=== PATIENT | female | born 1990 | race Caucasian/White ===

== ENCOUNTER 2019-08-06 13:17 | Outpatient (RCR) | payer OTHER, SELFPAY | END 2019-11-04 23:59 | disposition home or self-care (01) | LOC: ANHLAB 13:17 | PROVIDERS: Visit Provider Advanced Practice Midwife | DX: Z29.13 Encounter for prophylactic Rho(D) immune globulin (principal); O36.0990 Maternal care for other rhesus isoimmunization, unspecified trimester, not applicable or unspecified; Z3A.00 Weeks of gestation of pregnancy not specified | CPT/HCPCS: 36415 ==

== ENCOUNTER 2019-12-30 09:53 | Emergency (ER) | payer OTHER, SELFPAY ==
[2019-12-30] VITALS (28 sets, daily range): BP systolic 99–116; BP diastolic 60–72; PULSE 61–86; RESP 15–29; TEMP 36.3; O2SAT 98–100
--- NOTE | ~2019-12-30 | XR_ITS ---
XR chest 1V portable DATE: 12/30/2019 11:08 INDICATION: Shortness of breath. 29 week gravid patient TECHNIQUE: Portable upright AP chest on 12/30/2019 at 1109 hours COMPARISON: None FINDINGS: Normal heart size. No hilar or mediastinal enlargement. No pulmonary infiltrate or consolid ation, pleural effusion or pulmonary vascular congestion or pneumothorax. Included skeletal structure s are unremarkable. IMPRESSION: No active cardiopulmonary disease Reviewed, dictated and finalized at location A.
--- NOTE | ~2019-12-30 | US_ITS ---
US venous doppler [facility] DATE: 12/30/2019 11:25 INDICATION: Calf pain. Shortness of breath. 29 week gravid patient. TECHNIQUE: Real-time and color flow imaging and Doppler analysis of the veins of the lower extremitie s COMPARISON: None FINDINGS: The greater saphenous veins are patent. There is spontaneous and phasic flow and normal aug mentation and color flow signal and normal compression of the deep veins of both lower extremities. IMPRESSION: No evidence of deep venous thrombosis of the lower extremities Reviewed, dictated and finalized at Location A. Reviewed, dictated and finalized at location A.
--- NOTE | ~2019-12-30 | NM_ITS ---
EXAMINATION: NM pulmonary perfusion DATE: 12/30/2019 13:38 INDICATION: Shortness of breath. TECHNIQUE: 4.2 mCi Tc-99m MAA was administered intravenously for perfusion images. Scintigraphic eber ges of the chest were obtained. COMPARISON: Chest single view 12/30/2019 FINDINGS: Perfusion images show no defects. ] IMPRESSION: 1. Normal perfusion of the lungs. Reviewed, dictated and finalized at location E.
--- NOTE | 2019-12-30 10:47 | ECG_ITS ---
Measurements Intervals [place] Rate: 74 P: 27 [place]: 166 QRS: 0 QRSD: 88 T: 14 QT: 393 QTc: 437 Interpretive Statements SINUS RHYTHM NORMAL ECG Electronically Signed On 12-30-2019 13:07:55 CDT by Rock Yee D.O.
--- NOTE | 2019-12-30 10:51 | ED.SOB ---
HPI - SOB/Dyspnea General Chief Complaint: Shortness of Breath/Dyspnea Stated Complaint: SOB/ 29 weeks Time Seen by Provider: 12/30/19 10:40 Source: patient Mode of arrival: ambulatory Limitations: no limitations History of Present Illness HPI Narrative: This patient is a 29 year old female who is 30 weeks GA who presents for evaluation shortness of breath since last night. She noticed initially when she was reaching into the dryer she was winded. She noticed that this feeling continued, and She feels short of breath when she talks and when she moves around. Otherwise she states she feels fine . She denies fever, cough, chest pain, back pain, nausea or vomiting. She reports she noticed bilateral calf soreness but no swelling. She denies history of DVT or PE. She denies any lung issues. Her OBGYN is Dr. Wilson. elicited complaint: shortness of breath Context: occurred during exertion and other (talking) Timing: constant Exacerbating factors: movement Associated symptoms: denies other symptoms Related Data Home Medications Medication Instructions Recorded Confirmed doxylamine succinate [Unisom 25 mg PO HS PRN 12/30/19 12/30/19 (doxylamine)] [id number] acid tablet PO 12/30/19 [ Multi] pyridoxine (vitamin B6) 12/30/19 Allergies Allergy/AdvReac Type Severity Reaction Status Date / Time No Known Allergies Allergy Verified 12/30/19 09:58 Review of Systems Review of Systems: All systems reviewed & are unremarkable except as noted in HPI and below Constitutional: Constitutional: Denies chills, Denies fever(s) and Denies weakness Cardiovascular: Cardiovascular: Denies chest pain and Denies radiating jaw, neck or arm pain Respiratory: Respiratory: Denies cough, Reports dyspnea and Denies wheezing Gastrointestinal: Gastrointestinal: Denies abdominal pain Musculoskeletal: Musculoskeletal: Denies back pain PMFSH Past Medical History Medical History (Updated 12/30/19 @ 14:53 by Sofi Yuan MD) No active medical problems Surgical History Surgical History (Updated 12/30/19 @ 10:52 by Sofi Yuan MD) Hx of cholecystectomy Social History Social History (Updated 08/06/19 @ 16:25 by Carmela Adam) Smoking status: Smoker, status unknown Gender identity (if verbalized by the patient): Female Exam Narrative: Exam Narrative: GENERAL: Well-appearing, well-nourished, and in no acute distress. HEAD: Normocephalic, atraumatic EYES: PERRLA and EOMI, conjunctiva clear without discharge NECK: Supple, without lymphadenopathy or mass RESPIRATORY: No respiratory distress, Airway patent, Respirations non-labored, Clear to auscultation without rales, rhonchi or wheeze HEART: Regular rate and rhythm. No murmur heard. Normal peripheral pulses. ABDOMEN: Soft, nontender, normal active bowel sounds. No masses. No rebound or guarding, No organomegaly. gravid EXTREMITIES: No edema, normal strength with full range of motion. SKIN: Warm, dry, normal color without rash NEURO: Alert and oriented x3. CN 2-12 grossly intact. No focal deficits. PSYCH: Normal mood and affect. Course Reevaluation(s) Reevaluation #1: I Discussed with patient evaluation has been unremarkable. She is able to ambulated without hypoxia. Date: 12/30/19 Time: 14:51 Consultations Consultation #1: I have discussed with Dr. Macias that patient evaluated to rule PE. Dopplers and vq are normal. He is agreeable to patient being discharged. Date: 12/30/19 Time: 14:50 Vital Signs Vital signs: Vital Signs Temperature 97.3 F L 12/30/19 09:56 Pulse Rate 75 12/30/19 09:56 Respiratory Rate 18 12/30/19 09:56 Blood Pressure 105/60 12/30/19 09:56 Pulse Oximetry 100 12/30/19 09:56 Temperature 97.3 F L 12/30/19 09:56 Pulse Rate 74 12/30/19 15:13 Respiratory Rate 16 12/30/19 15:13 Blood Pressure 99/62 L 12/30/19 15:13 Pulse Oximetry 99 12/30/19 15:13
[2019-12-30 11:14] LABS: Basophils Percent Auto 0.2 % (0.2-1.2); Eosinophils Percent Auto 0.3 % (0-4.4); Hematocrit 37.3 % (37.0-47.0); Hemoglobin 12.9 g/dL (12.0-15.0); Immature Granulocyte Absolute 0.04 K/mm3 (0.00-0.031); Immature Granulocyte Percent A 0.3 % (0-0.5); Lymphocytes Absolute Auto 2.45 K/mm3 (0.9-3.2); Lymphocytes Percent Auto 20.8 % (18.3-44.2); Mean Corpuscular HGB Conc 34.6 g/dl (32-36); Mean Corpuscular Hemoglobin 30.9 pg (26-34); Mean Corpuscular Volume 89.2 fl (80-100); Mean Platelet Volume 9.5 fl (7.4-10.4); Monocytes Absolute Auto 0.5 K/mm3 (0.1-0.6); Monocytes Percent Auto 4.3 % (2.6-8.5); Neutrophils Absolute Auto 8.7 K/mm3 (1.3-6.7); Neutrophils Percent Auto 74.1 % (45.5-73.1); Platelet Count Result 381 k/mm3 (150-375); Red Blood Count 4.18 M/mm3 (4.2-5.4); Red Cell Distribution Width 13.2 % (11.5-14.5); White Blood Count 11.8 K/mm3 (4.5-10.0)
[2019-12-30 11:23] LABS: INR 0.9; Prothrombin Time 11.8 Seconds (11.1-14.7)
[2019-12-30 11:24] LABS: Partial Thromboplastin Time 26.3 SECONDS (22.3-36.8)
[2019-12-30 11:37] LABS: Alanine Aminotransferase 12 U/L (4-35); Albumin Level 3.8 g/dL (3.5-5.1); Alkaline Phosphatase 132 U/L (38-126); Aspartate Amino Transferase 27 U/L (14-36); Bilirubin,Total 0.4 mg/dL (0.2-1.3); Blood Urea Nitrogen 5 mg/dL (7-17); Calcium 9.1 mg/dL (8.4-10.2); Carbon Dioxide 24 mmol/L (22-30); Estimated CRCL calculation 147 ml/min; Estimated Glomerular Filt Rate > 60; Glucose 73 mg/dL (65-105); NT Pro B Type Natriuretic Pept 82 PG/ML (5-100); Potassium 3.4 mmol/L (3.4-5.0); Sodium 137 mmol/L (137-145); Troponin I < 0.012 ng/mL (0.000-0.034)
[2019-12-30 12:39] LABS: Chloride 105 mmol/L (98-107)
--- NOTE | 2019-12-30 14:40 | PC.NURSE ---
pt amb with pulse ox consistent 99-100% reading
== END 2019-12-30 15:13 | disposition home or self-care (01) ==
PROVIDERS: Emergency Provider General Practice; PCP Family Medicine
DX: O26.893 Other specified pregnancy related conditions, third trimester (principal); R06.00 Dyspnea, unspecified; Z3A.30 30 weeks gestation of pregnancy
CPT/HCPCS: 36415; 71045; 78580; 80053; 83880; 84484; 85025; 85610; 85730; 93005; 93970; 99284; A9540

== ENCOUNTER 2020-02-29 17:25 | Outpatient (CLI) | payer OTHER, SELFPAY ==
[2020-02-29 17:57] VITALS: BP 117/82; PULSE 74
[2020-02-29 18:00] VITALS: BP 122/69; PULSE 68
[2020-02-29 18:15] VITALS: BP 121/74; PULSE 73
[2020-02-29 18:30] VITALS: BP 121/74; PULSE 85; TEMP 36.7
[2020-02-29 18:44] LABS: Basophils Percent Auto 0.2 % (0.2-1.2); Eosinophils Absolute Auto 0.1 K/mm3 (0-0.3); Eosinophils Percent Auto 0.5 % (0-4.4); Hematocrit 33.4 % (37.0-47.0); Hemoglobin 11.3 g/dL (12.0-15.0); Immature Granulocyte Absolute 0.04 K/mm3 (0.00-0.031); Immature Granulocyte Percent A 0.4 % (0-0.5); Lymphocytes Absolute Auto 2.51 K/mm3 (0.9-3.2); Mean Corpuscular HGB Conc 33.8 g/dl (32-36); Mean Corpuscular Hemoglobin 30.2 pg (26-34); Mean Corpuscular Volume 89.3 fl (80-100); Mean Platelet Volume 10.3 fl (7.4-10.4); Monocytes Absolute Auto 0.5 K/mm3 (0.1-0.6); Monocytes Percent Auto 4.4 % (2.6-8.5); Neutrophils Absolute Auto 7.4 K/mm3 (1.3-6.7); Neutrophils Percent Auto 70.5 % (45.5-73.1); Platelet Count Result 275 k/mm3 (150-375); Red Blood Count 3.74 M/mm3 (4.2-5.4); Red Cell Distribution Width 13.2 % (11.5-14.5); White Blood Count 10.4 K/mm3 (4.5-10.0)
[2020-02-29 18:46] LABS: Add Urine Microscopic? NO; Appearance Urine Clear (Clear); Bilirubin Urine Negative (Negative); Blood Urine Negative (Negative); Color Urine Straw (Yellow); Glucose Urine UA Negative (Negative); Ketones Urine Negative (Negative); Leukocyte Esterase Ur Negative LEU/UL (NEGATIVE); Nitrate Urine Negative (Negative); Protein Urine Negative (Negative); Urobilinogen Urine Negative mg/dL (<2.0)
[2020-02-29 18:55] VITALS: BP 117/82; PULSE 74
[2020-02-29 18:56] LABS: Alanine Aminotransferase 12 U/L (4-35); Albumin Level 3.3 g/dL (3.5-5.1); Alkaline Phosphatase 152 U/L (38-126); Aspartate Amino Transferase 19 U/L (14-36); Bilirubin,Total 0.2 mg/dL (0.2-1.3); Blood Urea Nitrogen 7 mg/dL (7-17); Calcium 8.9 mg/dL (8.4-10.2); Carbon Dioxide 24 mmol/L (22-30); Chloride 102 mmol/L (98-107); Estimated Glomerular Filt Rate > 60; Glucose 88 mg/dL (65-105); Potassium 3.6 mmol/L (3.4-5.0); Sodium 132 mmol/L (137-145); Uric Acid 5.4 mg/dL (2.5-7.5)
[2020-02-29 18:58] LABS: Creatinine Urine 48.8 mg/dL; Total Protein Urine Random 13 mg/dL
--- NOTE | 2020-02-29 19:03 | PC.NURSE ---
Notified Edith Quan CNM with patient lab results. NST reactive category 1. Patient contractions q6-9 min, patient not feeling contractions and contractions palpate mild. VSS. Order given to discharge patient to home with follow-up as scheduled in the office.
--- NOTE | 2020-02-29 19:11 | PC.NURSE ---
HIP precautions and s/s reviewed with patient prior to patient leaving OB unit. Patient left OB unit ambulating at 1910.
== END 2020-02-29 19:11 | disposition home or self-care (01) ==
LOC: ANHOBOP 17:33 → ANHOBPP 17:34
PROVIDERS: Advanced Practice Midwife; Visit Provider Obstetrics & Gynecology
DX: O13.9 Gestational [pregnancy-induced] hypertension without significant proteinuria, unspecified trimester (principal); Z3A.00 Weeks of gestation of pregnancy not specified
CPT/HCPCS: 36415; 59025; 80053; 81003; 82570; 84156; 84550; 85025; 87086; 87088; 99199

== ENCOUNTER 2020-03-20 17:47 | Inpatient (IN) | payer OTHER, SELFPAY ==
[2020-03-20] VITALS (10 sets, daily range): BP systolic 113–144; BP diastolic 69–92; PULSE 58–74; TEMP 36.4; BMI 38.6
[2020-03-20 18:41] LABS: Basophils Percent Auto 0.2 % (0.2-1.2); Eosinophils Percent Auto 0.3 % (0-4.4); Hematocrit 33.4 % (37.0-47.0); Hemoglobin 11.5 g/dL (12.0-15.0); Immature Granulocyte Absolute 0.04 K/mm3 (0.00-0.031); Immature Granulocyte Percent A 0.3 % (0-0.5); Lymphocytes Absolute Auto 3.02 K/mm3 (0.9-3.2); Mean Corpuscular HGB Conc 34.4 g/dl (32-36); Mean Corpuscular Hemoglobin 30.3 pg (26-34); Mean Corpuscular Volume 87.9 fl (80-100); Mean Platelet Volume 10.9 fl (7.4-10.4); Monocytes Absolute Auto 0.6 K/mm3 (0.1-0.6); Monocytes Percent Auto 5.3 % (2.6-8.5); Neutrophils Absolute Auto 7.9 K/mm3 (1.3-6.7); Neutrophils Percent Auto 67.9 % (45.5-73.1); Platelet Count Result 269 k/mm3 (150-375); Red Cell Distribution Width 13.6 % (11.5-14.5); White Blood Count 11.6 K/mm3 (4.5-10.0)
--- NOTE | 2020-03-20 18:41 | LDADM ---
This patient, Munira Russell, was admitted to Labor/Delivery/Recovery 108 on 03/20/20 at 17:47. Plans for labor, pain management and were discussed with patient. Patient/family oriented to hospital policies and general routines including ID bracelet, bed and alarms, visiting hours, pain management, procedures, bathroom and other care routines, personal items, smoking policy, room service/diet and guest tray routines, security routines, and visiting hours. Patient/Family are encouraged to report perceived risks to care and to ask questions if they do not understand what they are told or what they should do. See OBIX for further documentation.
[2020-03-20] MEDS: DINOPROSTONE 10 MG VAG INSERT VAGINAL (18:52)
[2020-03-21] VITALS (110 sets, daily range): BP systolic 72–147; BP diastolic 35–118; PULSE 49–177; TEMP 36.3–37; O2SAT 86–100
--- NOTE | 2020-03-21 05:58 | WPDANESEPPF ---
Anes - Initial Pre Proc Eval Procedure: labor epidural Date/Time: 03/21/20 05:58 Surgeon: Sally Wilson MD Pre Op Diagnosis: labor pain Pre Op Diagnosis: Induction of Labor Patient Data Age: 29 Gender: F Height: 1.6 m Weight: 99 kg Last Vital Signs Temp 36.4 C L 03/20/20 20:00 Pulse 62 03/21/20 01:17 BP 134/84 03/21/20 01:17 Allergies Allergy/AdvReac Type Severity Reaction Status Date / Time No Known Allergies Allergy Verified 12/30/19 09:58 Home Medications Medication Instructions Recorded Confirmed Type Multi 1 tablet PO DAILY 12/30/19 03/20/20 History Unisom (doxylamine) 25 mg PO HS PRN 12/30/19 03/20/20 History pyridoxine (vitamin B6) 1 tablet PO DAILY 12/30/19 03/20/20 History Laboratory Tests 03/20/20 03/20/20 03/20/20 18:26 18:26 18:26 WBC 11.6 K/mm3 H K/mm3 (4.5-10.0) RBC 3.80 M/mm3 L M/mm3 (4.2-5.4) Hgb 11.5 g/dL L g/dL (12.0-15.0) Hct 33.4 % L % (37.0-47.0) MCV 87.9 fl fl (80-100) MCH 30.3 pg pg (26-34) MCHC 34.4 g/dl g/dl (32-36) RDW 13.6 % % (11.5-14.5) Plt Count 269 k/mm3 k/mm3 (150-375) MPV 10.9 fl H fl (7.4-10.4) Immature Gran % (Auto) 0.3 % % (0-0.5) Neut % (Auto) 67.9 % % (45.5-73.1) Lymph % (Auto) 26.0 % % (18.3-44.2) [place] % (Auto) 5.3 % % (2.6-8.5) Eos % (Auto) 0.3 % % (0-4.4) Baso % (Auto) 0.2 % % (0.2-1.2) Lymph # (Auto) 3.02 K/mm3 K/mm3 (0.9-3.2) [place] # (Auto) 0.6 K/mm3 K/mm3 (0.1-0.6) Eos # (Auto) 0.0 K/mm3 K/mm3 (0-0.3) Baso # (Auto) 0.0 K/mm3 K/mm3 (0.0-0.1) Abs Immat Gran (auto) 0.04 K/mm3 H K/mm3 (0.00-0.031) Absolute Neuts (auto) 7.9 K/mm3 H K/mm3 (1.3-6.7) Absolute Nucleated RBC 0.0 K/mm3 K/mm3 (0.0-0.012) Nucleated RBC % 0.0 % % (0.0-0.2) RPR Pending Blood Type O Positive Antibody Screen Negative Patient hx anesthesia problems: none Family hx anesthesia problems: none PMFSH Past Medical History Medical History (Updated 12/31/19 @ 00:00 by Leah Cee) No active medical problems Surgical History Surgical History (Updated 12/30/19 @ 10:52 by Sofi Yuan MD) Hx of cholecystectomy Family History Family History (Updated 02/23/20 @ 14:42 by Leatha Martinez RN) Mother Hypertension Social History Social History (Updated 08/06/19 @ 16:25 by Carmela Adam) Smoking status: Never smoker Substance use: never Gender identity (if verbalized by the patient): Female Spiritual care concerns: No Anes - Eval Final PreProcedure Day of Procedure 03/21/20 05:58 Patient weight: obese Informed Consent: The patient's anesthetic plan and its attendant risks and benefits were discussed with the patient/family/POA. Questions were solicited and answers provided to the satisfaction of the patient/family/POA.
--- NOTE | 2020-03-21 07:22 | WPDOBADMIT ---
Obstetrics - Admit Note Admission Note: record reviewed. No pertinent additions to the history and/or any subsequent changes in the physical findings that are not consistent with the expected course of the were found. EIL at 40 + weeks, closed/80/-2 Additions to the history and/or subsequent changes in the physical findings follow. None.
--- NOTE | 2020-03-21 07:23 | P.HP_ITS ---
H&P: HPI History of Present Illness Date/Time: 03/21/20 07:23 Chief complaint: Induction of Labor Narrative: Munira Russell is a 29 year old female COUNTS INCLUDE 234 BEDS AT THE [facility] Past Medical History Medical History (Updated 03/21/20 @ 07:25 by Beth Quan CNM) No active medical problems Surgical History Surgical History (Updated 12/30/19 @ 10:52 by Sofi Yuan MD) Hx of cholecystectomy Family History Family History (Updated 02/23/20 @ 14:42 by Leatha Martinez RN) Mother Hypertension Social History Social History (Updated 08/06/19 @ 16:25 by Carmela Adam) Smoking status: Never smoker Substance use: never Gender identity (if verbalized by the patient): Female Spiritual care concerns: No Meds Home Medications and Allergies Home Medications Medication Instructions Recorded Confirmed Type Multi 1 tablet PO DAILY 12/30/19 03/20/20 History Unisom (doxylamine) 25 mg PO HS PRN 12/30/19 03/20/20 History pyridoxine (vitamin B6) 1 tablet PO DAILY 12/30/19 03/20/20 History Allergies Allergy/AdvReac Type Severity Reaction Status Date / Time No Known Allergies Allergy Verified 12/30/19 09:58 Vital Signs Vital Signs - 24 hr 03/20/20 18:26 03/20/20 18:45 03/20/20 19:00 Temperature Pulse Rate 73 69 62 Blood Pressure 144/92 H 121/81 133/69 03/20/20 19:15 03/20/20 19:30 03/20/20 19:45 Temperature Pulse Rate 62 61 62 Blood Pressure 113/76 116/78 124/80 03/20/20 20:00 03/20/20 20:15 03/20/20 20:30 Temperature 36.4 C L Pulse Rate 63 73 74 Blood Pressure 120/71 116/91 H 117/87 03/20/20 20:45 03/21/20 01:17 03/21/20 06:58 Temperature Pulse Rate 58 L 62 67 Blood Pressure 125/79 134/84 100/82 03/21/20 07:00 03/21/20 07:15 Temperature Pulse Rate 63 92 Blood Pressure 117/62 120/78 H&P: Results Labs Labs: Short CBC 03/20/20 Range/Units 18:26 WBC 11.6 H (4.5-10.0) K/mm3 Hgb 11.5 L (12.0-15.0) g/dL Hct 33.4 L (37.0-47.0) % Plt Count 269 (150-375) k/mm3 Assessment and Plan Assessment and plan (1) 40 weeks gestation of : Code(s): Z3A.40 - 40 weeks gestation of Status: Acute
[2020-03-21] MEDS: LACTATED RINGERS 1,000 ML 125 ML IV CONT ×2 (07:33→12:27)
[2020-03-21] MEDS: OXYTOCIN 30 UNITS/NS 500 ML 30 UNITS/500 ML BAG 6 UNITS IV CONT (07:34)
[2020-03-21 08:16] LABS: Rapid Plasma Reagin Non-Reactive (NonReactive)
--- NOTE | 2020-03-21 13:16 | PM.OBPNLAB ---
Pain Control Date/time seen: 03/21/20 13:16 SVE 2/80/-2, AROM minimal amount of meconium flecked fluid, IUPC placed
[2020-03-21] MEDS: SODIUM CHLORIDE 0.9% IV 300 ML 600 ML I-UTERINE (13:56)
[2020-03-22] VITALS (73 sets, daily range): BP systolic 96–172; BP diastolic 47–107; PULSE 65–213; RESP 15–21; TEMP 36.4–38.5; O2SAT 96–100
[2020-03-22] MEDS: LACTATED RINGERS 1,000 ML 125 ML IV CONT (02:39)
--- NOTE | 2020-03-22 05:10 | PM.OBPNVD ---
OB - PN: Subj Subjective Date/time seen: 03/22/20 05:10 Patient is 29-year-old 1 at 40 weeks gestation with incentive with estimated weight about 3700 g. She has pushed for 2-1/2 hours. There was a failed vacuum. With kiwi vacuum. There were approximately 6 pulls over about 6 contractions with 2 pop offs. The infant was at +4 station At the start.. It was in the YESI position. No episiotomy was performed. It was midline episiotomy. Indication for kiwi was maternal exhaustion. We agreed to proceed with delivery. There is reassuring status. There is meconium and maternal fever. OB - PN: Obj Data Labs CBC & Chem 7: 03/20/20 18:26 Labs: Laboratory Results - last 24 hr 03/20/20 18:26 RPR Non-reactive OB - PN A/P Time Spent With Patient Time: Total time spent is greater than 50% in coordination of care (as documented) at patient's floor/unit and/or counseling patient:
--- NOTE | 2020-03-22 05:20 | PM.OBPRVD ---
OB - Delivery Note Procedure Complications: CNM at bs and RML repaired with 3-0 and 4-0 vicryl, lidocaine given prior to repair [place] Baby Weeks of gestation at delivery: 40
--- NOTE | 2020-03-22 05:25 | WPDANESEFPP ---
Anes - Eval Final PreProcedure Day of Procedure 03/22/20 05:25 Patient weight: obese Heart: regular rate and rhythm Lungs: clear to auscultation and normal air movement Airway: Mallampati scale class II Neurological: alert and oriented Last oral intake: >/= 8 hours ASA classification: III Anesthetic plan: proceed Anesthesia type and monitoring: regional epidural and standard monitoring Informed Consent: The patient's anesthetic plan and its attendant risks and benefits were discussed with the patient/family/POA. Questions were solicited and answers provided to the satisfaction of the patient/family/POA.
--- NOTE | 2020-03-22 05:41 | PC.NURSE ---
ancef 2 grams given at [address]o
[2020-03-22] MEDS: ceFAZolin 2 GM/D5W 50 ML 2 GM/50 ML BAG IVPB (06:00)
--- NOTE | 2020-03-22 06:43 | P.OP_ITS ---
Procedure Note - Detailed Date of procedure: 03/22/20 Pre-op diagnosis: Induction of Labor term , failure to descend, maternal fever Post-op diagnosis: same Procedure performed: low-transverse delivery Description of procedure: The patient was taken the operating room. She was prepped and draped in the dorsal supine position with leftward tilt after induction of spinal anesthetic. When anesthesia was found to be adequate a low- transverse skin incision was made and carried down to the level the fascia with the knife. The fascial incision was made at the midline with a scalpel. The fascial incision was extended laterally with Mckinley scissors. The fascia was tented upward superior and inferior with Skylar clamps. The rectus muscles were dissected off bluntly. The rectus muscles at the midline. The preperitoneal fat was dissected bluntly at the superior aspect of the separate the rectus muscles. The peritoneal cavity was entered bluntly in the same area. The peritoneal incision was extended superior and inferior with good visualization of bladder. Bladder blade was inserted. A low-transverse incision was made on the uterus with the scalpel. It was carried down the level of the amniotic cavity with a knife. The amniotic cavity bluntly. The uterine incision was made laterally with blunt traction. The infant was delivered. The cord was clamped and cut. The infant was handed off to waiting pediatric staff. Cord bloods were obtained. The placenta was removed manually. The uterus was exteriorized. Uterus cleared of all clots and debris. Uterus closed in 0 Vicryl in a running locked fashion. An imbricating layer of 0 Vicryl was also placed on the to bolster the closure. The uterus was returned to the abdomen. The gutters were cleared of all clots and debris. The fascia was closed 0 Vicryl in a running fashion. Subcutaneous tissue was irrigated and bleeding areas were cauterized. The skin was closed with subcuticular absorbable zabrina. The incision was covered with derma bajwa. The patient tolerated the procedure well. She was taken recovery room stable condition. Sponge, lap, needle counts were correct x2. Anesthesia: spinal Surgeon: Irina Macias MD Estimated blood loss (mL): 240 Drains: No Packing: No Pathology: none sent Complications: No immediate complications Condition: stable Disposition: floor Findings: Normal maternal anatomy. Average size . Difficult transition for infant
[2020-03-22] MEDS: LACTATED RINGERS 250 ML 999 ML IVPB (07:16)
[2020-03-22] MEDS: MORPHINE SULFATE 2 MG/ML INJ IV PUSH (08:30)
[2020-03-22] MEDS: OXYTOCIN 30 UNITS/NS 500 ML 30 UNITS/500 ML BAG 125 UNITS IV CONT (08:31)
[2020-03-22] MEDS: LANOLIN (LANSINOH) 7.5 GM CREAM 1 APPLIC TOPICAL (10:42)
[2020-03-22] MEDS: IBUPROFEN 600 MG TABLET PO ×2 (12:49→19:45)
[2020-03-22] MEDS: DEXTROSE 5%/0.45% SOD CHL 1,000 ML 125 ML IV CONT ×2 (13:16→21:14)
--- NOTE | 2020-03-22 15:26 | PC.NURSE ---
0910 Pt admitted to second floor OB room 292 per stretcher from labor and delivery after delivery of viable female infant at [address] Macias. Mother is a and desires to breast feed infant, possibly pumping and bottle feeding, and possibly putting infant to breast, she is undecided. /FOB present. Couple briefly oriented to room, staffing and procedures; both parents extremely tired after a long labor and delivery. Pt's VSS and assessment WNL.
[2020-03-22] MEDS: DOCUSATE SODIUM 100 MG CAPSULE PO (17:06)
[2020-03-22] MEDS: ACETAMINOPHEN 325 MG TABLET 650 MG PO (17:10)
[2020-03-23] MEDS: IBUPROFEN 600 MG TABLET PO ×4 (01:04→18:58)
[2020-03-23 04:37] VITALS: BP 104/62; PULSE 71; RESP 16; TEMP 36.5; O2SAT 100
[2020-03-23 05:15] LABS: Basophils Percent Auto 0.2 % (0.2-1.2); Eosinophils Percent Auto 0.2 % (0-4.4); Hematocrit 28.8 % (37.0-47.0); Hemoglobin 9.6 g/dL (12.0-15.0); Immature Granulocyte Absolute 0.12 K/mm3 (0.00-0.031); Immature Granulocyte Percent A 0.7 % (0-0.5); Lymphocytes Absolute Auto 1.55 K/mm3 (0.9-3.2); Lymphocytes Percent Auto 8.4 % (18.3-44.2); Mean Corpuscular HGB Conc 33.3 g/dl (32-36); Mean Platelet Volume 10.5 fl (7.4-10.4); Monocytes Absolute Auto 0.4 K/mm3 (0.1-0.6); Monocytes Percent Auto 2.2 % (2.6-8.5); Neutrophils Absolute Auto 16.2 K/mm3 (1.3-6.7); Neutrophils Percent Auto 88.3 % (45.5-73.1); Platelet Count Result 190 k/mm3 (150-375); Red Cell Distribution Width 13.7 % (11.5-14.5); White Blood Count 18.4 K/mm3 (4.5-10.0)
[2020-03-23] MEDS: MULTIVIT/MIN/PREN/FOL AC/IRON TABLET 1 TAB PO (07:51)
[2020-03-23] MEDS: POLYSACCHARIDE IRON COMPLEX 150 MG CAPSULE PO ×2 (07:51→16:49)
[2020-03-23] MEDS: SIMETHICONE 80 MG TAB.CHEW PO ×2 (07:51→16:49)
[2020-03-23] MEDS: DOCUSATE SODIUM 100 MG CAPSULE PO ×2 (07:52→16:49)
[2020-03-23 07:59] VITALS: BP 104/69; PULSE 71; PULSE 80; RESP 18; TEMP 36.3
--- NOTE | 2020-03-23 08:31 | PM.OBPNVD ---
OB - PN: Subj Subjective Date/time seen: 03/23/20 08:31 Patient comments: no complaints, pain well controlled, tolerating diet and flatus present OB - PN: Obj Data Labs CBC & Chem 7: 03/23/20 04:01 Labs: Laboratory Results - last 24 hr 03/23/20 04:01 WBC 18.4 H RBC 3.20 L Hgb 9.6 L Hct 28.8 L MCV 90.0 MCH 30.0 MCHC 33.3 RDW 13.7 Plt Count 190 MPV 10.5 H Immature Gran % (Auto) 0.7 H Neut % (Auto) 88.3 H Lymph % (Auto) 8.4 L [place] % (Auto) 2.2 L Eos % (Auto) 0.2 Baso % (Auto) 0.2 Lymph # (Auto) 1.55 [place] # (Auto) 0.4 Eos # (Auto) 0.0 Baso # (Auto) 0.0 Abs Immat Gran (auto) 0.12 H Absolute Neuts (auto) 16.2 H Absolute Nucleated RBC 0.0 Nucleated RBC % 0.0 OB - PN A/P Plan day: 1 Comments: Post Op LTCS - no problems, routine recovery Time Spent With Patient Time: Total time spent is greater than 50% in coordination of care (as documented) at patient's floor/unit and/or counseling patient: Exam Const: General: cooperative, healthy appearing, comfortable and no acute distress Resp: Auscultation: no crackles, no rales, no rhonchi and no wheezes Cardio: Rhythm: regular rhythm Heart sounds: no click and no murmurs GI: Inspection: non-distended Auscultation: normal bowel sounds Extrem: General: normal to inspection, no pedal edema and no calf tenderness
--- NOTE | 2020-03-23 08:37 | WPDANLDPN2 ---
Anes-Prog Note L&D Date/Time: 03/23/20 08:37 Comfortable throughout: section Neuraxial method: spinal Epidural/Spinal procedure site: clean & non-tender Neuro status: Neuro function grossly intact. Cardiovascular status: normal Respiratory status: normal Airway patency: baseline Mental status: baseline Post-Op hydration status: normal Vital Signs: Last Vital Signs Temp 36.3 C L 03/23/20 07:59 Pulse 80 03/23/20 07:59 Resp 18 03/23/20 07:59 BP 104/69 03/23/20 07:59 Pulse Ox 100 03/23/20 04:37 I/O: Intake & Output 03/22/20 03/23/20 03/23/20 23:59 07:59 15:59 Intake Total 1870 2050 Output Total 1150 3800 Balance 720 -1750 Post-procedural complaints: none Patient feedback: Patient satisfied with anesthetic care.
--- NOTE | 2020-03-23 14:30 | PC.NURSE ---
Consult with pt., mother will pump and bottle feed EBM/formula. Reviewed instructions on breast pump care and usage, pumping schedule, nipple care, and collection and storage of breast milk. Encouraged [id number], breast massage and manual expression to stimulate supply. Pumping log provided and reviewed. Assessed patient for correct flange size moved to 27mm, placement and draw. Patient verbalizes and demonstrates understanding of instructions.
[2020-03-23 19:06] VITALS: BP 132/81; PULSE 101; RESP 16; TEMP 36.2; O2SAT 100
[2020-03-24] MEDS: IBUPROFEN 600 MG TABLET PO ×4 (01:51→23:18)
[2020-03-24] MEDS: TETANUS,DIPHTHERIA,AC PERTUSSIS ADULT (0.5 ML) BOOSTRIX IM (05:18)
--- NOTE | 2020-03-24 07:19 | PM.OBPNVD ---
OB - PN: Subj Subjective Date/time seen: 03/24/20 07:19 Patient comments: incisional pain [place] baby status: doing well feeding status: exclusively bottle feeding OB - PN: Obj Data Labs CBC & Chem 7: 03/23/20 04:01 OB - PN A/P Plan day: 2 Plan: routine care Time Spent With Patient Time: Total time spent is greater than 50% in coordination of care (as documented) at patient's floor/unit and/or counseling patient: Exam Const: General: no acute distress Psych: Appearance: grossly normal Affect: normal affect Attitude: cooperative Judgement: Good judgement present (Psych)
[2020-03-24 08:25] VITALS: BP 130/89; PULSE 75; RESP 18; TEMP 37.3; O2SAT 99
--- NOTE | 2020-03-24 10:40 | WPDANLDPN2 ---
Anes-Prog Note L&D Date/Time: 03/24/20 09:40 Comfortable throughout: section Neuraxial method: spinal Epidural/Spinal procedure site: clean & non-tender Neuro status: Neuro function grossly intact. Cardiovascular status: normal Respiratory status: normal Airway patency: baseline Mental status: baseline Post-Op hydration status: normal Vital Signs: Last Vital Signs Temp 37.3 C 03/24/20 08:25 Pulse 75 03/24/20 08:25 Resp 18 03/24/20 08:25 BP 130/89 03/24/20 08:25 Pulse Ox 99 03/24/20 08:25 Post-procedural complaints: none Patient feedback: Patient satisfied with anesthetic care.
[2020-03-24] MEDS: MULTIVIT/MIN/PREN/FOL AC/IRON TABLET 1 TAB PO (10:55)
[2020-03-24] MEDS: DOCUSATE SODIUM 100 MG CAPSULE PO ×2 (10:55→17:00)
[2020-03-24] MEDS: POLYSACCHARIDE IRON COMPLEX 150 MG CAPSULE PO ×2 (10:56→17:00)
[2020-03-24] MEDS: SIMETHICONE 80 MG TAB.CHEW PO ×3 (10:56→23:18)
--- NOTE | 2020-03-24 11:00 | PC.NURSE ---
Consult with pt., mother continues to pump without difficulties or discomfort. Mother is comfortable with her feeding choice, reporting infant is more awake and eagerly bottle feeding. Mother is feeding as required and waking to feed if needed. is currently meeting outcomes for weight, output, jaundice and feeding frequencies. Mother states she feels confident to continue effective at home. Reviewed transition to breast milk, signs of adequate intake, and engorgement/relief. Instructed to call ICP if intake/output less than required. Reviewed regular medications mother is taking. Information provided per Peri. Reviewed community resources on the [facility] website and in the Mom/Baby guide. Information on outpatient services provided. Mother has no further questions at this time.
[2020-03-24 20:00] VITALS: BP 130/77; PULSE 79; RESP 18; TEMP 36.3; O2SAT 100
--- NOTE | 2020-03-24 20:00 | PC.NURSE ---
Patient to view the discharge video Mother & Baby Care, The First Two Weeks online. Patient was given the opportunity and encouraged to ask questions. Patient verbalized understanding of information shared and has been given the mother/baby guide for home reference.
[2020-03-25] MEDS: IBUPROFEN 600 MG TABLET PO ×2 (05:05→11:18)
[2020-03-25 08:00] VITALS: BP 118/70; PULSE 84; RESP 20; TEMP 37.1
[2020-03-25] MEDS: SIMETHICONE 80 MG TAB.CHEW PO (09:09)
[2020-03-25] MEDS: DOCUSATE SODIUM 100 MG CAPSULE PO (09:09)
[2020-03-25] MEDS: POLYSACCHARIDE IRON COMPLEX 150 MG CAPSULE PO (09:09)
[2020-03-25] MEDS: MULTIVIT/MIN/PREN/FOL AC/IRON TABLET 1 TAB PO (09:09)
--- NOTE | 2020-03-25 10:31 | PM.OBPNVD ---
OB - PN: Subj Subjective Date/time seen: 03/25/20 10:31 Patient comments: no complaints, pain well controlled, tolerating diet, flatus present and other (Lochia less than menses. Ambulating and voiding without problems) baby status: doing well OB - PN: Obj Data Labs CBC & Chem 7: 03/23/20 04:01 OB - PN A/P Plan day: 3 (s/p section, doing well and ready to be discharged home) Plan: routine care, discharge home and other (Follow up in office in 1 week) Time Spent With Patient Time: Total time spent is greater than 50% in coordination of care (as documented) at patient's floor/unit and/or counseling patient: Exam Const: General: no acute distress Resp: Auscultation: clear to auscultation bilaterally Cardio: Rate: regular rate Rhythm: regular rhythm GI: Inspection: non-distended, incision (Intact without erythema, drainage, or induration) and other (Fundus firm and nontender below umbilicus) GI Palp: Yes abdominal tenderness (appropriate) and Yes Soft to palpation Extrem: General: no edema
[2020-03-27 09:05] VITALS: BP 136/81; PULSE 79; RESP 20; O2SAT 100
--- NOTE | 2020-04-09 20:54 | PM.OBDSVD ---
DS: Admitting Diagnosis Admitting Diagnosis Admitting Diagnosis: Induction of Labor DS: Discharge Diagnosis Discharge Diagnosis (1) Term delivered: Code(s): O80 - Encounter for full-term uncomplicated delivery Status: Acute OB - DS: Summary OB Procedures : None OB Procedures Intrapartum: Spontaneous Vag Delivery OB Procedures: : None Peripartum Data Procedures: Procedures Operation Date: 03/22/20 05:30 Actual Procedures Side Surgeon p Section Not Applicable Irina Macias MD Time Spent with Patient Time attestation: Total time spent providing and/or coordinating discharge services: DS: Data Data Completed and Pending Completed studies during hospitalization: Pending at discharge 03/22/20 13:32 Surgical [PTH] Routine Discharge Plan Discharge Attending physician on discharge: Irina Macias Consulting providers: Sally Wilson ; [facility] ; Beth Quan Discharging Clinician: Sally Wilson Patient Disposition: Home, Self-Care Activity: may shower and pelvic rest Diet: regular Wound Care Instructions: incision open to air Discharge Instructions: Education: Mom and Baby Guide Given to: Mother Follow-Up: Call your delivering provider's office for an appointment to be seen in: 1 Week Mom and baby should come to the [facility] for the follow-up appointment. Appointment Date/Time: March 27, 2020 at 9:00 am What to expect at your follow-up visit: Blood Pressure Check Physical Assessment Call [phone] if you are unable to keep your appointment time. BREAST CARE: * Wear a snug supportive bra. * For engorgement discomfort: Breast Feeding: * Apply warm moist washcloths * Express milk as needed to relieve engorgement * Wear loose clothing Bottle Feeding: * May apply ice packs * For sore nipples: * Identify correct latch-on * Apply warm moist washcloths before and after nursing * Air dry nipples after nursing * May apply Lansinoh cream to nipples ABDOMINAL INCISION: (if applicable) * Allow incision to air dry * Do NOT use lotions for powders on your incision * When showering, allow soap and water to run over the incision, but do not wash incision EPISIOTOMY/PERINEAL CARE: * Until bleeding stops, use your melissa bottle after urinating * Change your pad frequently throughout the day * You may take sitz baths several times a day (fill your bathtub with warm water and soak for 20 minutes.) Do NOT bathe in the water * No tub baths until seen by your physician - You may shower ACTIVITY: * Rest as much as possible. * Do not exercise or lift anything heavier than your baby (such as laundry or other children.) * Avoid stairs or driving as much as possible. * Do not put anything into the vagina. No douching, tampons, or sexual activity until seen by physician. NOTIFY PHYSICIAN IF YOU HAVE ANY QUESTIONS OR IF ANY OF THE FOLLOWING SYMPTOMS OCCUR: * If your incision becomes red, swollen, or more painful than what you have experienced in the hospital. * If your vaginal bleeding becomes foul smelling. * If your vaginal bleeding becomes more heavy than a period or if your bleeding changes from pink to bright red. However, you may pass an occasional walnut-sized clot once or twice for the first week . * If you experience a sharp, shooting pain in you calves. * If you discover a hard, reddened area on your breast or if you experience flu-like symptoms. DIET: * Eat regular, well-balanced meals. * Drink plenty of fluids daily. If , drink to thirst. Patient Instructions: Antibiotic Form Stand Alone Forms: General Discharge Information Follow-up/Referrals: Irina Macias MD [Physician] - 1 Week Discharge Medications: New hydrocodone-acetaminophen 5-325 mg Tablet
== END 2020-03-25 13:39 | disposition home or self-care (01) | DRG 786 ==
LOC: ANHOB2 03-25 11:39 → ANHLDR 03-27 11:26 → ANHOB2 03-27 11:26
PROVIDERS: Advanced Practice Midwife; Admitting Provider Obstetrics & Gynecology; Visit Provider Obstetrics & Gynecology
PROC: 10D00Z1 Extraction of Products of Conception, Low, Open Approach (ICD-10-PCS; CPT 59514; principal; 2020-03-22 05:30)
DX: O77.0 Labor and delivery complicated by meconium in amniotic fluid (principal); O41.1230 Chorioamnionitis, third trimester, not applicable or unspecified; Z37.0 Single live birth; Z3A.40 40 weeks gestation of pregnancy; O66.5 Attempted application of vacuum extractor and forceps; O75.81 Maternal exhaustion complicating labor and delivery; O99.214 Obesity complicating childbirth; E66.9 Obesity, unspecified; O36.8330 Maternal care for abnormalities of the fetal heart rate or rhythm, third trimester, not applicable or unspecified; O63.1 Prolonged second stage (of labor)
CPT/HCPCS: 36415; 85025; 86592; 86850; 86900; 86901; 88307; 90715; A9270; J0131; J0690; J1885; J2270; J2405; J2590; J2795; J3010; J7030; J7120

== ENCOUNTER 2021-06-26 10:17 | Outpatient (CLI) | payer OTHER, SELFPAY ==
--- NOTE | ~2021-06-26 | XR_ITS ---
XR hysterosalpingogram DATE: 06/26/2021 12:20 INDICATION: Infertility TECHNIQUE: Fluoroscopy and spot radiographs were performed during a hysterosalpingogram procedure per formed by the water proofer. 10.339 DAP 0.4 minutes fluoroscopy time COMPARISON: None FINDINGS: The uterine cavity is normally shaped. Normal caliber of the fallopian tubes. There is no rmal bilateral peritoneal spillage. IMPRESSION: Negative Reviewed, dictated and finalized at [facility] Reviewed, dictated and finalized at [facility]. [employer] IMPRESSION: Negative
[2021-06-26 11:14] LABS: Beta HCG Quantitative < 2.39 mIU/ML
--- NOTE | 2021-06-26 12:17 | W.PM.PROC2 ---
Procedure Note - Detailed Date of Procedure 06/26/21 Pre-op Diagnosis female infertility Post-op Diagnosis same Procedure Performed Hysterosalpingogram Surgeon Irina Macias MD Anesthesia none Findings normal vulva vagina and cervix, patent tubes, normal appearing intrauterine cavity Description of Procedure the patient was placed on the fluoroscopy table. A speculum was placed in the vagina. The cervix was prepped with Betadine. A catheter was placed in the intrauterine cavity through the cervix. The balloon was inflated. The speculum was removed. Radiologist began capturing images. The radiopaque dye was infused into the intrauterine cavity. The resulting flow of the dye was observed. The balloon was deflated and images of the normal intrauterine cavity were observed. the procedure was terminated. She tolerated it well. Estimated Blood Loss 0 Drains No Packing No Pathology none sent Complications No immediate complications Condition stable
== END 2021-06-26 10:18 | disposition home or self-care (01) ==
PROVIDERS: Visit Provider Obstetrics & Gynecology
DX: Z01.89 Encounter for other specified special examinations (principal)
CPT/HCPCS: 36415; 58340; 74740; 84702; Q9966

== ENCOUNTER 2024-07-07 11:59 | Outpatient (RCR) | payer OTHER, SELFPAY ==
[2024-06-28 11:41] VITALS: BP 130/73; PULSE 76
[2024-07-07 12:45] VITALS: BP 115/73; PULSE 75
== END 2024-08-21 15:58 | disposition home or self-care (01) ==
LOC: ANHOBOP 11:59
PROVIDERS: Visit Provider Obstetrics & Gynecology
DX: O36.8190 Decreased fetal movements, unspecified trimester, not applicable or unspecified (principal)
CPT/HCPCS: 59025

== ENCOUNTER 2024-07-19 09:23 | Inpatient (IN) | payer OTHER, SELFPAY ==
[2024-07-19] VITALS (41 sets, daily range): BP systolic 108–137; BP diastolic 67–83; PULSE 53–75; RESP 14–19; TEMP 35.9–36.9; O2SAT 99–100; BMI 43.5; BMI 43.4
[2024-07-19] MEDS: ACETAMINOPHEN 500 MG TABLET 1000 MG PO (10:15)
[2024-07-19 10:17] LABS: Basophils Percent Auto 0.2 % (0.2-1.2); Eosinophils Absolute Auto 0.1 K/mm3 (0-0.3); Eosinophils Percent Auto 0.5 % (0-4.4); Hemoglobin 11.5 g/dL (12.0-15.0); Immature Granulocyte Absolute 0.04 K/mm3 (0.00-0.031); Immature Granulocyte Percent A 0.4 % (0-0.5); Lymphocytes Absolute Auto 2.07 K/mm3 (0.9-3.2); Lymphocytes Percent Auto 19.4 % (18.3-44.2); Mean Corpuscular HGB Conc 33.8 g/dl (32-36); Mean Corpuscular Volume 88.8 fl (80-100); Mean Platelet Volume 10.3 fl (7.4-10.4); Monocytes Absolute Auto 0.4 K/mm3 (0.1-0.6); Monocytes Percent Auto 4.1 % (2.6-8.5); Neutrophils Percent Auto 75.4 % (45.5-73.1); Platelet Count Result 263 k/mm3 (150-375); Red Blood Count 3.83 M/mm3 (4.2-5.4); Red Cell Distribution Width 14.1 % (11.5-14.5); White Blood Count 10.7 K/mm3 (4.5-10.0)
[2024-07-19] MEDS: LACTATED RINGERS 1,000 ML 125 ML IV CONT (10:17)
[2024-07-19 11:06] LABS: Rapid Plasma Reagin Non-Reactive (NonReactive)
[2024-07-19 11:10] LABS: HIV 1/2 Ab P24 Ag Result Negative (Negative)
[2024-07-19] MEDS: LACTATED RINGERS 1,000 ML 999 ML IV CONT (11:10)
--- NOTE | 2024-07-19 11:16 | LDADM ---
This patient, Munira Russell, was admitted to Labor/Delivery/Recovery 119 on 07/19/24 at 09:23. Plans for labor, pain management and were discussed with patient. Patient/family oriented to hospital policies and general routines including ID bracelet, bed and alarms, visiting hours, pain management, procedures, bathroom and other care routines, personal items, smoking policy, room service/diet and guest tray routines, security routines, and visiting hours. Patient/Family are encouraged to report perceived risks to care and to ask questions if they do not understand what they are told or what they should do. See OBIX for further documentation.
--- NOTE | 2024-07-19 11:24 | P.PNAN_ITS ---
Anes - Initial Pre Proc Eval Procedure: Operation Date: 07/19/24 12:00 Proposed Procedures p Repeat Section - Tylor Macias MD Date/Time: 07/19/24 11:24 Surgeon: Tylor Macias MD Pre Op Diagnosis: C/S Patient Data Age: 33 Gender: F Height: 1.6 m Weight: 111.5 kg Last Vital Signs Pulse 75 07/19/24 10:16 BP 120/70 07/19/24 10:16 Allergies Allergy/AdvReac Type Severity Reaction Status Date / Time No Known Allergies Allergy Verified 07/16/24 09:48 Home Medications Medication Instructions Recorded Confirmed Type vit 122-ferrous fumarate 1 tablet PO DAILY 12/30/19 07/16/24 History 27 mg iron-folic acid 800 mcg tablet ( Multi) docusate sodium 100 mg capsule 100 mg PO BID 07/16/24 07/16/24 History (Colace) Laboratory Tests 07/19/24 10:00 WBC 10.7 H K/mm3 (4.5-10.0) RBC 3.83 L M/mm3 (4.2-5.4) Hgb 11.5 L g/dL (12.0-15.0) Hct 34.0 L % (37.0-47.0) MCV 88.8 fl (80-100) MCH 30.0 pg (26-34) MCHC 33.8 g/dl (32-36) RDW 14.1 % (11.5-14.5) Plt Count 263 k/mm3 (150-375) MPV 10.3 fl (7.4-10.4) Immature Gran % (Auto) 0.4 % (0-0.5) Neut % (Auto) 75.4 H % (45.5-73.1) Lymph % (Auto) 19.4 % (18.3-44.2) [place] % (Auto) 4.1 % (2.6-8.5) Eos % (Auto) 0.5 % (0-4.4) Baso % (Auto) 0.2 % (0.2-1.2) Lymph # (Auto) 2.07 K/mm3 (0.9-3.2) [place] # (Auto) 0.4 K/mm3 (0.1-0.6) Eos # (Auto) 0.1 K/mm3 (0-0.3) Baso # (Auto) 0.0 K/mm3 (0.0-0.1) Abs Immat Gran (auto) 0.04 H K/mm3 (0.00-0.031) Absolute Neuts (auto) 8.0 H K/mm3 (1.3-6.7) Absolute Nucleated RBC 0.000 K/mm3 (0.0-0.012) Nucleated RBC % 0.0 % (0.0-0.2) RPR Non-reactive (NonReactive) HIV 1&2 Ab/P24 Ag 4thGn Negative (Negative) Blood Type O Positive Antibody Screen Negative Patient hx anesthesia problems: none Family hx anesthesia problems: none Results Review: All pre-operative results and documents have been reviewed as part of the pre- operative evaluation. [facility] Past Medical History Medical History (Updated 07/19/24 @ 11:24 by Anand Navarrete MD) 40 weeks gestation of Surgical History Surgical History Hx of cholecystectomy Family History Family History Mother Hypertension Pancreatic cancer Social History Social History Smoking status: Never smoker Substance use: never Gender identity (if verbalized by the patient): Female Spiritual care concerns: No Anes - Eval Final PreProcedure Day of Procedure 07/19/24 11:24 Patient weight: morbidly obese Heart: regular rate and rhythm Lungs: clear to auscultation Airway: Mallampati scale class III Neurological: alert and oriented Last oral intake: >/= 8 hours ASA classification: III Emergent: no Anesthetic plan: proceed Anesthesia type and monitoring: regional spinal and standard monitoring Results Review: All pre-operative results and documents have been reviewed as part of the pre- operative evaluation. Informed Consent: The patient's anesthetic plan and its attendant risks and benefits were discussed with the patient/family/POA. Questions were solicited and answers provided to the satisfaction of the patient/family/POA.
[2024-07-19] MEDS: ONDANSETRON INJ 4 MG/2 ML VIAL IV PUSH (11:27)
[2024-07-19] MEDS: FAMOTIDINE 20 MG/2 ML VIAL IV PUSH (11:29)
--- NOTE | 2024-07-19 12:06 | P.HP_ITS ---
H&P: HPI History of Present Illness Date/Time: 07/19/24 12:06 Chief Complaint: Term , unwanted fertility Narrative: 33-year-old female at 39 weeks with term , previous , and unwanted fertility. We have agreed to perform repeat delivery and bilateral salpingectomy. The patient understands the details of the procedure. The procedure has been explained in detail. She understands the risks. She understands that injuries may occur that result in hospitalization, more surgery, and severe illness. She understands risk of hemorrhage and infection. She denies any chest pain or shortness of breath. She denies any nausea, vomiting, fever, chills. Review of Systems Review of Systems: All systems reviewed & are unremarkable except as noted in HPI and below Constitutional: Constitutional: Denies chills, Denies fatigue, Denies fever(s) and Denies weakness Eyes: Eyes: Denies blurry vision, Denies change in vision, Denies loss of peripheral vision, Denies loss of vision, Denies other visual disturbances and Denies eye pain ENT: Denies vertigo, Denies dizziness, Denies hearing loss, Denies mouth pain, Denies nasal obstruction, Denies neck mass and Denies neck pain Cardiovascular: Cardiovascular: Denies chest pain, Denies diaphoresis, Denies syncope, Denies leg edema and Denies dyspnea Respiratory: Respiratory: Denies chest congestion, Denies cough, Denies hemoptysis, Denies dyspnea and Denies wheezing Gastrointestinal: Gastrointestinal: Denies abdominal pain, Denies constipation, Denies diarrhea, Denies nausea and Denies vomiting Genitourinary: Genitourinary: Denies hematuria, Denies change in libido, Denies nocturia, Denies genital lesions, Denies flank pain and Denies urinary urgency Musculoskeletal: Musculoskeletal: Denies abnormal gait, Denies back pain, Denies myalgias, Denies arthralgias, Denies joint swelling, Denies muscle weakness and Denies neck pain Integumentary/Breasts: Skin/Breast: Denies swelling, Denies breast pain, Denies breast mass, Denies dry skin, Denies nipple discharge, Denies unusual br uising and Denies jaundice Neurologic: Denies Neuro-related abnormal movements, Denies Abnormal speech present, Denies abnormal gait, Denies behavioral changes, Denies confusion, Denies vertigo, Denies dizziness, Denies syncope, Denies loss of vision, Denies memory loss, Denies convulsions and Denies weakness Psychiatric: Psychiatric: Denies abnormal sleep pattern, Denies behavioral changes, Denies change in libido, Denies confusion, Denies depression, Denies anhedonia and Denies memory loss Endocrine: Endocrine: Reports no additional endocrine complaints, Denies change in libido and Denies fatigue Hematologic/Lymphatic: Hematologic/Lymphatic: Reports no additional hematologic/lymphatic complaints Allergic/Immunologic: Allergic/Immunologic: Reports no additional allergic/immunologic complaints and Denies wheezing PMFSH Past Medical History Medical History (Updated 07/19/24 @ 12:07 by Tylor Macias MD) 40 weeks gestation of Surgical History Surgical History (Reviewed 07/19/24 @ :24 by Anand Navarrete MD) Hx of cholecystectomy Family History Family History (Reviewed 07/19/24 @ :24 by Anand Navarrete MD) Mother Hypertension Pancreatic cancer Social History Social History (Reviewed 07/19/24 @ :24 by Anand Navarrete MD) Smoking status: Never smoker Second hand tobacco smoke exposure: No Substance use: never Do You Feel Safe in your Home?: Yes Lack of Transportation: No Lack of Food: Never True Current Housing: I Have Housing Concerned About Future Housing: No Difficulty Paying Gas/Electric Bills: No Difficulty Paying for Meds: No Currently Unemployed: No Education: Master's Degree or Higher Difficulty w/ Childcare or Family Care: No Gender identity (if verbalized by the patient): Female Spiritual care concerns: No Meds Home Medications and Allergies Home Medications Medication Instructions Recorded Confirmed Type vit 122-ferrous fumarate 1 tablet PO DAILY 12/30/19 07/19/24 History 27 mg iron-folic acid 800 mcg tablet ( Multi) docusate sodium 100 mg capsule 100 mg PO BID 07/16/24 07/19/24 History (Colace) Allergies Allergy/AdvReac Type Severity Reaction Status Date / Time No Known Allergies Allergy Verified 07/16/24 09:48 Vital Signs Vital Signs - 24 hr 07/19/24 10:01 07/19/24 10:16 Pulse Rate 72 75 Blood Pressure 130/79 120/70 Exam Const: General: cooperative, healthy appearing, comfortable and no acute distress Orientation/consciousness: oriented to person, oriented to place and oriented to time HENMT: Head: normal to inspection Ears: external ears normal Face/Nose/Sinus: Normal external nose present and normal facial exam Face and sinus: normal facial exam Eyes: General: appearance normal, both eyes and all related structures Neck: Neck: normal visual inspection, trachea midline and supple Resp: Auscultation: clear to auscultation bilaterally, no crackles, no rales, no rhonchi and no wheezes Cardio: Rate: regular rate Rhythm: regular rhythm Heart sounds: no click, no murmurs and no rubs GI: GI Palp: No abdominal tenderness, No Soft to palpation, No Tenderness to palpation present (GI) and No Palpable mass present Auscultation: normal bowel sounds Skin: General skin exam: normal color and no rashes or lesions noted Neuro: General: oriented to person, oriented to place and oriented to time Extrem: General: normal to inspection, no joint enlargement, no clubbing, cyanosis or edema, no pedal edema and no calf tenderness Psych: Appearance: grossly normal Mental Status: mental status grossly normal Speech and movement: Normal speech and movement present H&P: Results Labs Labs: Short CBC 07/19/24 Range/Units 10:00 WBC 10.7 H (4.5-10.0) K/mm3 Hgb 11.5 L (12.0-15.0) g/dL Hct 34.0 L (37.0-47.0) % Plt Count 263 (150-375) k/mm3 Assessment and Plan Assessment and plan (1) Previous section: Code(s): Z98.891 - History of uterine scar from previous surgery Status: Acute (2) Unwanted fertility: Code(s): Z30.09 - Encounter for other general counseling and advice on contraception Status: Acute Plan 33-year-old female at 39 weeks with term , previous , and unwanted fertility. We have agreed to perform repeat delivery and bilateral salpingectomy. she understands the risks, benefits, and alternatives. She has completed informed consent process and is ready to proceed
--- NOTE | 2024-07-19 12:10 | WPDHPUPDATE1 ---
History and Physical Update Update Date/Time: 07/19/24 12:10 History and Physical has been reviewed, including an updated exam of the patient. There are NO changes in the patient's condition. Risks, benefits, and alternatives have been discussed and questions answered. Patient agrees to proceed with procedure.
[2024-07-19] MEDS: ceFAZolin 2 GM/D5W 50 ML 2 GM/50 ML BAG IVPB (12:13)
--- NOTE | 2024-07-19 13:29 | W.PM.OBCSD ---
OB - Delivery Note Procedure Delivery date: 07/19/24 Pre-op diagnosis: Previous Delivery and Other ( female sterilization) Post-op Diagnosis: Same Procedure Performed: Repeat and Tubal Ligation ( salpingectomy on the right, tubal ligation on the left) Surgeon: Tylor Macias MD Anesthesia type: Spinal Description of Procedure/Findings: The patient was taken the operating room.? She was prepped and draped in dorsal supine position with a leftward tilt.? This was done after spinal anesthetic was applied.? A low-transverse skin incision was made and carried down till of the fascia with the knife.? The fascial incision was made with the knife.? The fascial incision was extended laterally with Mckinley scissors.? The fascia was tented upward superiorly and inferiorly the rectus muscles were dissected off bluntly.? The rectus muscles were the midline.? The preperitoneal fat and peritoneum were dissected open bluntly at the superior aspect of the rectus muscles.? The peritoneal incision was extended superior and inferior with good position of bladder.? The uterine incision was made with a scalpel down to the level of the amniotic cavity.? The amniotic cavity was entered bluntly.? The was delivered.? The cord was clamped and cut and the infant was handed off to waiting pediatric staff.? Cord bloods were obtained.? The placenta was removed manually.? The uterus was exteriorized.? The uterus was cleared of all clots, debris and membranes.? The uterus was closed in 0 Vicryl running lock fashion.? imbricating layer of 0 Vicryl was placed also. Each fallopian tube was grasped and raised with a Jason.? With from the underlying venous structures.? The mesosalpinx between the tube and the rest the adnexa was cauterized and transected with LigaSure cautery.? It was performed from the distal tube near the ovary in a stepwise fashion towards the cornua.? The tube at the cornua was cauterized transected with LigaSure cautery.? This was performed in a bilateral fashion.The entire tube was taken out on the right and a segment in the middle portion of the tube was taken on the left. The uterus was returned to the abdomen.? The gutters were cleared of all clots and debris.? The fascia was closed with 0 Vicryl running fashion.? The subcutaneous tissue was irrigated pinpoint bleeders were cauterized.? The skin was closed with subcuticular absorbable zabrina.? The skin incision line was covered with glue.? The patient tolerated the procedure well.? She has taken recovery room in stable condition.? Sponge lap and needle counts were correct x2.?
[2024-07-19] MEDS: OXYTOCIN 30 UNITS/NS 500 ML 30 UNITS/500 ML BAG 125 UNITS IV CONT (14:00)
[2024-07-19] MEDS: SIMETHICONE 80 MG TAB.CHEW PO (14:07)
[2024-07-19] MEDS: KETOROLAC 30 MG/ML VIAL (*BKC) (14:09)
[2024-07-19] MEDS: LIDOCAINE 5% PATCH 1 PATCH TRANSDERM (14:15)
[2024-07-19] MEDS: fentaNYL CITRATE INJ (*CRX) 100 MCG/2 ML VIAL 25 MCG IV PUSH ×2 (14:29→15:41)
[2024-07-19] MEDS: KETOROLAC 15 MG/ML VIAL (*BKC) IV PUSH ×2 (17:00→23:09)
[2024-07-19] MEDS: DOCUSATE SODIUM 100 MG CAPSULE PO (17:01)
[2024-07-19] MEDS: ACETAMINOPHEN 325 MG TABLET 650 MG BY MOUTH ×2 (17:01→23:09)
--- NOTE | 2024-07-19 18:35 | OBPPTRN ---
Patient transferred to post room #286 via stretcher. Support person present. Oriented to unit, room, information board, rooming in, admission packet and security measures. Patient verbalizes understanding.
[2024-07-19] MEDS: DEXTROSE 5%/0.45% SOD CHL 1,000 ML 125 ML IV CONT (18:47)
[2024-07-19] MEDS: HYDROcodone/acetaminophen (*CRX) 5-325 MG TABLET 1 TAB PO (22:05)
[2024-07-20 08:05] VITALS: BP 109/57; PULSE 72; RESP 16; TEMP 36.6; O2SAT 100
[2024-07-20 08:10] LABS: Basophils Percent Auto 0.2 % (0.2-1.2); Eosinophils Percent Auto 0.4 % (0-4.4); Hematocrit 28.9 % (37.0-47.0); Hemoglobin 9.8 g/dL (12.0-15.0); Immature Granulocyte Absolute 0.02 K/mm3 (0.00-0.031); Immature Granulocyte Percent A 0.2 % (0-0.5); Lymphocytes Absolute Auto 1.72 K/mm3 (0.9-3.2); Mean Corpuscular HGB Conc 33.9 g/dl (32-36); Mean Corpuscular Hemoglobin 30.2 pg (26-34); Mean Corpuscular Volume 89.2 fl (80-100); Mean Platelet Volume 10.3 fl (7.4-10.4); Monocytes Absolute Auto 0.5 K/mm3 (0.1-0.6); Monocytes Percent Auto 4.7 % (2.6-8.5); Neutrophils Absolute Auto 7.3 K/mm3 (1.3-6.7); Neutrophils Percent Auto 76.5 % (45.5-73.1); Platelet Count Result 204 k/mm3 (150-375); Red Blood Count 3.24 M/mm3 (4.2-5.4); Red Cell Distribution Width 14.2 % (11.5-14.5); White Blood Count 9.6 K/mm3 (4.5-10.0)
[2024-07-20] MEDS: MULTIVIT/MIN/PREN/FOL AC/IRON TABLET 1 TAB PO (09:00)
[2024-07-20] MEDS: DOCUSATE SODIUM 100 MG CAPSULE PO ×2 (09:00→16:33)
[2024-07-20] MEDS: SIMETHICONE 80 MG TAB.CHEW PO ×3 (09:00→16:33)
[2024-07-20] MEDS: POLYSACCHARIDE IRON COMPLEX 150 MG CAPSULE PO ×2 (09:00→16:34)
[2024-07-20] MEDS: ACETAMINOPHEN 325 MG TABLET 650 MG BY MOUTH (11:43)
--- NOTE | 2024-07-20 11:44 | PM.OBPNVD ---
OB - PN: Subj Subjective Date/time seen: 07/20/24 11:44 Patient comments: no complaints, pain well controlled, tolerating diet and flatus present OB - PN: Obj Data Labs 07/20/24 05:11 Labs: Laboratory Results - last 24 hr 07/20/24 05:11 WBC 9.6 RBC 3.24 L Hgb 9.8 L Hct 28.9 L MCV 89.2 MCH 30.2 MCHC 33.9 RDW 14.2 Plt Count 204 MPV 10.3 Immature Gran % (Auto) 0.2 Neut % (Auto) 76.5 H Lymph % (Auto) 18.0 L [place] % (Auto) 4.7 Eos % (Auto) 0.4 Baso % (Auto) 0.2 Lymph # (Auto) 1.72 [place] # (Auto) 0.5 Eos # (Auto) 0.0 Baso # (Auto) 0.0 Abs Immat Gran (auto) 0.02 Absolute Neuts (auto) 7.3 H Absolute Nucleated RBC 0.000 Nucleated RBC % 0.0 OB - PN A/P Plan day: 1 Comments: Post Op LTCS - no problems, routine recovery Time Spent With Patient Time: Total time spent is greater than 50% in coordination of care (as documented) at patient's floor/unit and/or counseling patient: Exam Const: General: cooperative, healthy appearing, comfortable and no acute distress Resp: Auscultation: no crackles, no rales, no rhonchi and no wheezes Cardio: Rhythm: regular rhythm Heart sounds: no click and no murmurs GI: Inspection: non-distended Auscultation: normal bowel sounds Extrem: General: normal to inspection, no pedal edema and no calf tenderness
[2024-07-20 12:03] VITALS: BP 115/74; PULSE 81; RESP 16; TEMP 36.9; O2SAT 99
--- NOTE | 2024-07-20 14:01 | WPDANLDPN2 ---
Anes-Prog Note L&D Date/Time: 07/20/24 14:01 Comfortable throughout: section Neuraxial method: spinal Epidural/Spinal procedure site: clean & non-tender Neuro status: Neuro function grossly intact. Cardiovascular status: normal Respiratory status: normal Airway patency: baseline Mental status: baseline Post-Op hydration status: normal Vital Signs: Last Vital Signs Temp 98.5 F 07/20/24 12:03 Pulse 81 07/20/24 12:03 Resp 16 07/20/24 12:03 BP 115/74 07/20/24 12:03 Pulse Ox 99 07/20/24 12:03 O2 Del Method Room Air 07/19/24 16:30 Pain score (VAS): 0/10 I/O: Intake & Output 07/19/24 07/20/24 07/20/24 23:59 07:59 15:59 Intake Total 1000 240 Output Total 1900 700 Balance -900 -460 Post-procedural complaints: none Patient feedback: Patient satisfied with anesthetic care.
--- NOTE | 2024-07-20 14:01 | WPDANLDNPN2 ---
Anes-Prog Note L&D-Neuraxial Date/Time: 07/20/24 14:01 Neuraxial medications: intrathecal PF morphine Opiod-related complaints: none Patient feedback: Patient satisfied with post-operative pain management.
[2024-07-20] MEDS: HYDROcodone/acetaminophen (*CRX) 5-325 MG TABLET 1 TAB PO ×2 (16:34→22:40)
[2024-07-20] MEDS: IBUPROFEN 600 MG TABLET PO ×2 (17:42→23:43)
[2024-07-20] MEDS: ACETAMINOPHEN 325 MG TABLET 650 MG PO ×2 (17:42→23:43)
[2024-07-20 20:00] VITALS: BP 100/63; PULSE 80; RESP 14; TEMP 36.7; O2SAT 100; O2SAT 94
[2024-07-21] MEDS: ACETAMINOPHEN 325 MG TABLET 650 MG PO ×2 (04:51→12:23)
[2024-07-21] MEDS: IBUPROFEN 600 MG TABLET PO ×2 (04:52→12:23)
--- NOTE | 2024-07-21 07:53 | P.PNOB_ITS ---
OB - PN: Subj Subjective Date/time seen: 07/21/24 07:53 Interval history: pp day 2 flatus present voiding without difficulty desires d/c home OB - PN: Obj Data Labs 07/20/24 05:11 Labs: Laboratory Results - last 24 hr 07/20/24 05:11 WBC 9.6 RBC 3.24 L Hgb 9.8 L Hct 28.9 L MCV 89.2 MCH 30.2 MCHC 33.9 RDW 14.2 Plt Count 204 MPV 10.3 Immature Gran % (Auto) 0.2 Neut % (Auto) 76.5 H Lymph % (Auto) 18.0 L [place] % (Auto) 4.7 Eos % (Auto) 0.4 Baso % (Auto) 0.2 Lymph # (Auto) 1.72 [place] # (Auto) 0.5 Eos # (Auto) 0.0 Baso # (Auto) 0.0 Abs Immat Gran (auto) 0.02 Absolute Neuts (auto) 7.3 H Absolute Nucleated RBC 0.000 Nucleated RBC % 0.0 OB - PN A/P Plan day: 2 Plan: routine care and discharge home Time Spent With Patient Time: Total time spent is greater than 50% in coordination of care (as documented) at patient's floor/unit and/or counseling patient: Review of Systems 2 Review of Systems: All systems reviewed & are unremarkable except as noted in HPI and below Exam 2 Const: General: cooperative and healthy appearing Chest: Chest palpation & inspection: normal inspection of the chest Resp: Effort & Inspection: normal respiratory effort Cardio: Rate: regular rate GI: Other: incision CDI Skin: General skin exam: normal color
--- NOTE | 2024-07-21 07:56 | P.DS_ITS ---
DS: Admitting Diagnosis Discharge Date 07/21/24 Admitting Diagnosis repeat DS: Discharge Diagnosis Discharge Diagnosis (1) Term delivered: Code(s): O80 - Encounter for full-term uncomplicated delivery Status: Acute (2) Post-op pain: Code(s): G89.18 - Other acute postprocedural pain Status: Acute OB - DS: Summary OB Procedures : None OB Procedures Intrapartum: OB Procedures: : None Peripartum Data Procedures: Procedures Operation Date: 07/19/24 12:00 Actual Procedure Side Surgeon p Section Tylor Macias MD Time Spent with Patient Time attestation: Total time spent providing and/or coordinating discharge services: DS: Data Data Completed and Pending Completed studies during hospitalization: Pending at discharge 07/19/24 13:03 Surgical [PTH] Routine Labs on day of discharge: Labs from last 24 hours 07/20/24 05:11 WBC 9.6 RBC 3.24 L Hgb 9.8 L Hct 28.9 L MCV 89.2 MCH 30.2 MCHC 33.9 RDW 14.2 Plt Count 204 MPV 10.3 Immature Gran % (Auto) 0.2 Neut % (Auto) 76.5 H Lymph % (Auto) 18.0 L Blanco % (Auto) 4.7 Eos % (Auto) 0.4 Baso % (Auto) 0.2 Lymph # (Auto) 1.72 Blanco # (Auto) 0.5 Eos # (Auto) 0.0 Baso # (Auto) 0.0 Abs Immat Gran (auto) 0.02 Absolute Neuts (auto) 7.3 H Absolute Nucleated RBC 0.000 Nucleated RBC % 0.0 Discharge Plan Discharge Attending physician on discharge: Tylor Macias Discharging Clinician: Beth Quan Activity: pelvic rest Diet: regular Patient Language: Botswanan Follow-up/Referrals: Tylor Macias MD [Physician] - Discharge Medications: New hydrocodone-acetaminophen 5-325 mg Tablet 1 tablet PO Q3H PRN (Reason: Breakthrough Pain Rated 4-6) 15 Days Qty: 30 0RF Continued docusate sodium [Colace] 100 mg Capsule 100 mg PO BID No Action Multi 27-800 mg-mcg Tablet 1 tablet PO DAILY Date of admission: 07/19/24 09:23 Primary Care Provider: PHYSICIAN,MACHINE WOODWORKING SANDER Admitting Provider: Tylor Macias Attending physician on admission: Tylor Macisa Condition: Stable
[2024-07-21 08:10] VITALS: BP 112/74; PULSE 68; RESP 16; TEMP 36.5; O2SAT 100
[2024-07-21] MEDS: SIMETHICONE 80 MG TAB.CHEW PO ×2 (08:26→12:23)
[2024-07-21] MEDS: POLYSACCHARIDE IRON COMPLEX 150 MG CAPSULE PO (08:26)
[2024-07-21] MEDS: DOCUSATE SODIUM 100 MG CAPSULE PO (08:26)
[2024-07-21] MEDS: MULTIVIT/MIN/PREN/FOL AC/IRON TABLET 1 TAB PO (08:26)
[2024-07-23 09:07] VITALS: BP 126/68; PULSE 85; RESP 18; TEMP 36.6; O2SAT 99
== END 2024-07-21 14:42 | disposition home or self-care (01) | DRG 785 ==
LOC: ANHLDR 09:28 → ANHOB2 16:05
PROVIDERS: Admitting Provider Obstetrics & Gynecology; Visit Provider Obstetrics & Gynecology
PROC: 10D00Z1 Extraction of Products of Conception, Low, Open Approach (ICD-10-PCS; CPT 59514; principal; 2024-07-19 12:00)
DX: O34.211 Maternal care for low transverse scar from previous cesarean delivery (principal); Z37.0 Single live birth; Z3A.39 39 weeks gestation of pregnancy; O99.824 Streptococcus B carrier state complicating childbirth; Z30.2 Encounter for sterilization
CPT/HCPCS: 36415; 85025; 86592; 86703; 86850; 86900; 86901; 88302; A9270; G0432; J0690; J1885; J2274; J2405; J2590; J2704; J3010; J7120

== ENCOUNTER 2025-03-15 12:21 | Outpatient (CLI) | payer OTHER, SELFPAY ==
--- OUTSIDE RECORDS SUMMARY | 2025-03-15 12:25 | XMS_ITS | Clinical Summary ---
Author Organization [facility] Address [address] [place] [phone] Phone Care Team Providers Care Assembler Cards And Announcements Name Role Phone Provider, Unknown Primary Care Provider Unavaila ble Allergies No known active allergies Medications metFORMIN (GLUCOPHAGE) 500 MG Tablet Take 500 mg by mouth 2 times daily (with meals). Active Active Problems No known active problems Immunizations Immunization Administration Dates Next Due DTAP VACCINE 12/06/1996 DTP Vaccine 07/25/1994, 4,05/26/1992,1991 Hepatitis B Vaccine, Pediatric/adolescent 10/30/2001,06/05/2001,05/01/2001 Hib Vaccine,unspecified Formulation 07/11,11/29/1993,05/26/1992,1991 Inactivated Polio Vaccine 12/06/1996 Influenza Vaccine, MDCK,quad rivalent, pres free 09/14/2019 Influenza, Seasonal, Injecta ble, Undefined 05/11/2021 MMR Vaccine 01/23/2006,11/29/1993 OPV 11/29/1993,05/26/1992,03/31/1992 TDAP Vaccine 03/24/2020,01/23/2006 Social History Tobacco Use Types Packs/Day Years Used Date Smoking Tobacco: Never Smokeless Tobacco: Never Tobacco Cessation:Counseling Given: Not Answered Alcohol Use Standard Drinks/Week Comments Not Currently 0 (1 standard drink = 0.6 oz pur e alcohol) Comments Unknown Sex and Gender Information Value Date Recorded Sex Assigned at Not on file Legal Sex Female 8:17 AM CDT Gender Identity Not on file Sexual Orientation Not on file Last Filed Vital Signs Vital Sign Reading Time Taken Comments Blood Pressure 122/72 03/08/2023 8:25 AM CDT Pulse 76 03/08/2023 8:25 AM CDT Temperature 36.1 C (97 F) 03/08/2023 8:25 AM CDT Respiratory Rate 18 03/08/2023 8:25 AM CDT Oxygen Saturation 98% 03/08/2023 8:25 AM CDT Inhaled Oxygen Concentration - - Weight - - Height - - Body Mass Index - - Plan of Treatment Health Maintenance Due Date Last Done Comments Hepatitis C Virus (HCV) Screening 1991 Human Papillomavirus (HPV) Immunization (1 - 3-dose series) 12/25/2006 Pap Smear 12/25/2012 Cervical Cancer Screening (CCS) 12/25/2021 HPV/Cotest 12/25/2021 SARS-COV-2 Immunization ( season) 2024 07/13/2021, 11/24/2020, 10/27/2020 Influenza Immunization (#1) 2025 05/11/2021, 0 09/14/2019 DTaP/Tdap/Td Immunization (8 - Td or Tdap) 03/24/2030 03/24/2020, 01/23/2006, 12/06/1996, Additional history exists Respiratory Syncytial Virus (RSV) Immunization (Adult) (1 - 1-dose 75+ series) 12/25/2066 Hepatitis B Immunization Completed 002, 06/05/2001, 05/01/2001 Meningococcal Immunization (ACWY) Aged Out No longer eligible based on patient's age to complete this topic Pneumococcal Immunization Combined Aged Out No longer eligible based on patient's age to complete this topic Rotavirus Immunization Aged Out No lo nger eligible based on patient's age to complete this topic Insurance [employer] Care Teams Assembler Cards And Announcements Relationship Specialty Start Date End Date Provider, Unknown UNKNOWN PCP - General 03/08/23
--- OUTSIDE RECORDS SUMMARY | 2025-03-15 12:25 | XMS_ITS | Clinical Summary ---
Author Organization [facility] Address [address] [place] [address] Care Team Providers Care Ash Kier Boiler Name Role Phone Unavailable Primary Care Provider Unavailabl e Source Comments [facility],non-owned Affiliates and Associated Physician Practices is amultiple site organization consisting of ambulatory clinics and hospital sitesin [place], [place], [place] and [place]. This disclosure is being madepursuant to the Care Everywhere program and may not contain all information available regarding this patient. Last updated 18.[facility] Social History Tobacco Use Types Packs/Day Years Used Date Smoking Tobacco: Never Assessed Comments Unknown Sex and Gender Information Value Date Recorded Sex Assigned at Not on file Legal Sex Female 9:04 AM CDT Gender Identity Not on file Sexual Orientation Not on file Plan of Treatment Health Maintenance Due Date Last Done Comments HIV SCREENING 12/25/2006 HEPATITIS C SCREENING 12/21/2009 DTAP/TDAP/TD VACCINES (1 - Tdap) 12/25/2010 HEPATITIS B VACCINE (1 of 3 - 19+ 3-dose series) 12/25/2010 HPV VACCINE (1 - 3-dose SCDM series) 12/25/2018 COVID-19 VACCINE (4 - 2023-2 5 season) 2024 07/13/2021, 11/24/2020, 10/27/2020 DEPRESSION SCREENING 08/11/2024 INFLUENZA VACCINE (#1) 2025 , 09/14/2019 PAP SMEAR 12/09/2025 12/09/2022, 12/09/2022 ZOSTER VACCINE (1 of 2) 12/25/2041 HIB VACCINE Aged Out No longer eligi ble based on patient's age to complete this topic MENINGOCOCCAL (Group B) VACCINE SHARED DECISION-MAKING Aged Out No longer eligible based on patient's age to complete this topic MENINGOCOCCAL GROUPS A/C/Y/W VACCINE Aged Out No longer eligible b ased on patient's age to complete this topic PNEUMOCOCCAL VACCINE Aged Out No long er eligible based on patient's age to complete this topic Insurance SELF PAY NO INSURANCE Member Subscriber Plan / Payer (Ef fective for All Dates) Name:Munira Russell Member ID:Not on file Relation to Subscriber:Not on file Name:MUNIRA RUSSELL Subscriber ID:Not on file Address: [address] [place], [place] [id number] Payer ID:Not on file Group ID:Not on file Type:Self Pay Address: [facility]
--- OUTSIDE RECORDS SUMMARY | 2025-03-15 12:25 | XMS_ITS | Clinical Summary ---
Author Organization [facility] Address [address] [place] [address] Care Team Providers Care Table Assembler Name Role Phone Naveen Ortega DO Primary Care Provider Allergies No known active allergies Medications estradioL (ESTRACE) 2 mg tablet Take 2 mg by mouth daily Active Active Problems No known active problems Social History Tobacco Use Types Packs/Day Years Used Date Smoking Tobacco: Never Personal Safety Answer Date Recorded Getting School Help Needed Not on file 09/30 Comments Unknown Sex and Gender Information Value Date Recorded Sex Assigned at Not on file Legal Sex Female 11:39 AM CDT Gender Identity Female 04/10/2021 2:14 PM CDT Sexual Orientation Not on file Obstetrics History Last Filed Vital Signs Vital Sign Reading Time Taken Comments Blood Pressure 112/82 03/31/2022 8:14 AM CDT Pulse 90 03/31/2022 8:14 AM CDT Temperature 36.9 C (98.5 F) 03/31/2022 8:14 AM CDT Respiratory Rate 18 03/31/2022 8:14 AM CDT Oxygen Saturation 96% 03/31/2022 8:14 AM CDT Inhaled Oxygen Concentration - - Weight 97.5 kg (215 lb) 03/31/2022 8:14 AM CDT Height 160 cm (5' 3) 03/31/2022 8:14 AM CDT Body Mass Index 38.09 03/31/2022 8:14 AM CDT Plan of Treatment Health Maintenance Due Date Last Done Comments Cervical Cancer Screening 1991 Depression Screening 1991 Hepatitis C Screening 1991 Varicella Vaccines (1 of 2 - 13+ 2-dose series) 12/25/2004 Regular Well Visit/Exam 18-64 12/25/2009 HPV Vaccines (1 - 3-dose SCDM series) 12/25/2018 Covid-19 Vaccine ( season) 2024 07/13/2021, 11/24/2020, 10/27/2020 Influenza Vaccine (#1) 2025 05/11/2021, 2019 DTaP/Tdap/Td Vaccine (8 - Td or Tdap) 03/24/2030 03/24/2020, 01/23/2006, 12/06/1996, Additional history exists Hepatitis B Screening Completed 10/30/2001 , 06/05/2001, 05/01/2001 Pneumococcal vaccine <65 Aged Out No longer eligible based on patient's age to complete this topic Insurance [employer] Care Teams Table Assembler Relationship Specialty Start Date End Date Naveen Ortega DO [address] [place] [id number] PCP - General Family Practice 03/31/22
--- OUTSIDE RECORDS SUMMARY | 2025-03-15 12:25 | XMS_ITS | Referral Summary ---
Author Organization [facility] Address [address] [place] [address] Care Team Providers Care Human Resources Training Manager Name Role Phone Naveen Ortega DO Primary [...] PM CDT Sexual Orientation Not on file Last Filed [...] 03/31/2022 8:14 AM CDT Plan of Treatment Not on file Insurance [employer] C[employer] Care Teams Human Resources Training Manager Relationship Specialty Start Date End Date Naveen Ortega DO [address] [place] [id number] PCP - General Family Practice 03/31/22
[2025-03-15 19:26] LABS: Hematocrit 43.2 % (37.0-47.0); Hemoglobin 13.9 g/dL (12.0-15.0); Immature Granulocyte Percent A 0.1 % (0-0.5); Lymphocytes Absolute Auto 3.49 K/mm3 (0.9-3.2); Mean Corpuscular HGB Conc 32.2 g/dl (32-36); Mean Corpuscular Hemoglobin 27.9 pg (26-34); Mean Corpuscular Volume 86.7 fl (80-100); Nucleated Red Blood Cells Absolute Auto 0.000 K/mm3 (0.0-0.012); Nucleated Red Blood Cells Perc 0.0 % (0.0-0.2); Platelet Count Result 475 k/mm3 (150-375); Red Blood Count 4.98 M/mm3 (4.2-5.4); White Blood Count 10.1 K/mm3 (4.5-10.0)
[2025-03-15 19:38] LABS: Free T4 Free Thyroxine 0.94 ng/dL (0.78-2.19)
[2025-03-15 19:50] LABS: Hemoglobin A1C 5.1 % (<5.7)
== END 2025-03-15 12:22 | disposition home or self-care (01) ==
LOC: ANHBWCLAB 12:23
PROVIDERS: PCP Nurse Practitioner Adult Health; Visit Provider Nurse Practitioner Adult Health
DX: D72.829 Elevated white blood cell count, unspecified (principal); E66.9 Obesity, unspecified
CPT/HCPCS: 36415; 83036; 84439; 85025; 86376

== ENCOUNTER 2025-04-12 09:00 | Outpatient (CLI) | payer OTHER, SELFPAY ==
--- OUTSIDE RECORDS SUMMARY | 2007-10-01 03:25 | XMS_ITS | Continuity of Care Document ---
Author Organization [facility] Address [address] [id number] Phone Care Team Providers Care Resident Care Assistant Name Role Phone Fabio Dave MD Unavailable Unavailable Procedures Procedure Date Office/outpatient visit,[facility], [facility] [place] 2007 Office/outpatient visit,[facility] 2007 Advance Directives Directive Yes / No Effective Date File Name No Information Encounters Encounter Description Practice Location Reason(s) For Visit Diagnoses Date Provider Providers Copied on Encounter Office/outpat ient visit,[facility], [facility] [place] [facility], [address], [id number], tel:[phone] [facility] Office No Information Jolie Mccarthy. [address] [place] [address], [id number] , . tel: [phone] Office/outpat ient visit,[facility], [address] [place] [address], [id number], tel:[phone] [facility] Office No Information Jolie Mccarthy. [address] [place] [address], [id number] , . tel: [phone] Family History Family Member Type Diagnosis Age At Onset No Information Payers Payer name Insurance type Covered constitution party ID Authoriza tion(s) Jitendra merida [facility] [id number] Social History Type Description Quantity Date Captured Comments Sex Female Smoking Status No Information Chief Complaint And Reason For Visit No Information Reason For Referral Reason For Referral No Information History Of Present Illness Encounter Date Complaint History Of Prese nt Illness No Information Functional Status Date Functional Assessmen t No Information Instructions Date Instruction Additional Infor mation No Information Assessments Type Assessment Date No Information Patient Care Teams Name Effective Dates (start - stop) Status Members No Information
--- OUTSIDE RECORDS SUMMARY | 2025-04-12 09:13 | XMS_ITS | Clinical Summary ---
Author Organization [facility] Address [address] [place] [address] Care Team Providers Care Upholstery Tech Name Role Phone Naveen Ortega DO Primary Care Provider [phone] Allergies No known active allergies Medications estradioL [...] SCDM series) 12/25/2018 Covid-19 Vaccine ( season) 2025 07/13/2021, 11/24/2020, 10/27/2020 Influenza Vaccine (#1) 2025 05/11/2021, 2019 DTaP/Tdap/Td Vaccine (8 - Td or Tdap) 03/24/2030 03/24/2020, 01/23/2006, 12/06/1996, Additional history exists Hepatitis B Screening Completed 10/30/2001 , 06/05/2001, 05/01/2001 Pneumococcal vaccine <65 Aged Out No longer eligible based on patient's age to complete this topic Insurance [employer] Care Teams Upholstery Tech Relationship Specialty Start Date End Date Naveen Ortega DO [address] [place] [id number] PCP - General Family Practice 03/31/22
--- OUTSIDE RECORDS SUMMARY | 2025-04-12 09:13 | XMS_ITS | Clinical Summary ---
Author Organization [facility] Address [address] [place] [phone] Phone Care Team Providers Care Batchmaker Name Role Phone Provider, Unknown Primary Care [...] Comments Hepatitis C Virus (HCV) Screening 1991 Pap Smear 12/25/2012 Human Papillomavirus (HPV) Immunization (1 - 3-dose SCDM series) 12/25/2018 Cervical Cancer Screening (CCS) 12/25/2021 HPV/Cotest 12/25/2021 [...] patient's age to complete this topic Insurance [facility] Care Teams Batchmaker Relationship Specialty Start Date End Date Provider, Unknown UNKNOWN PCP - General 03/08/23
--- OUTSIDE RECORDS SUMMARY | 2025-04-12 09:14 | XMS_ITS | Clinical Summary ---
Author Organization [facility] Address [address] [place] [address] Care Team Providers Care Cloth Winder Name Role Phone Unavailable Primary Care Provider Unavailabl e Source Comments [facility],non-owned Affiliates and Associated Physician Practices is amultiple site organization consisting of ambulatory clinics and hospital sitesin [place], [place], [place] and [place]. This disclosure is being madepursuant to the Care Everywhere program and may not contain all information available regarding this patient. Last updated 18.[facility] Social History Tobacco Use Types Packs/Day Years [...] Name:MUNIRA RUSSELL Subscriber ID:Not on file Address: [address] [place], [place] [id number] Payer ID:Not on file Group ID:Not on file Type:Self Pay Address: [facility]
[2025-04-12 18:24] LABS: Alanine Aminotransferase 22 U/L (6-35); Albumin Level 4.1 g/dL (3.5-5.1); Alkaline Phosphatase 122 U/L (38-126); Anion Gap 8 mmol/L (4-12); Aspartate Amino Transferase 73 U/L (14-36); Bilirubin,Total 0.5 mg/dL (0.2-1.3); Blood Urea Nitrogen 15 mg/dL (7-17); Calcium 9.2 mg/dL (8.4-10.2); Carbon Dioxide 26 mmol/L (22-30); Chloride 103 mmol/L (98-107); Cholesterol 143 mg/dL (0-200); Estimated Glomerular Filt Rate > 60; Glucose 84 mg/dL (65-110); HDL Direct 23 mg/dL; Potassium 4.1 mmol/L (3.4-5.0); Sodium 137 mmol/L (137-145); Total Protein 7.7 g/dL (6.3-8.2); Triglycerides 177 mg/dL (<150)
[2025-04-12 18:30] LABS: Hematocrit 41.7 % (37.0-47.0); Hemoglobin 13.1 g/dL (12.0-15.0); Mean Corpuscular HGB Conc 31.4 g/dl (32-36); Mean Corpuscular Hemoglobin 28.1 pg (26-34); Mean Corpuscular Volume 89.3 fl (80-100); Platelet Count Result 402 k/mm3 (150-375); Red Blood Count 4.67 M/mm3 (4.2-5.4); White Blood Count 9.5 K/mm3 (4.5-10.0)
== END 2025-04-12 09:01 | disposition home or self-care (01) ==
LOC: ANHBWCLAB 09:02
PROVIDERS: PCP Nurse Practitioner Adult Health; Visit Provider Nurse Practitioner Adult Health
DX: E78.00 Pure hypercholesterolemia, unspecified (principal); D72.829 Elevated white blood cell count, unspecified
CPT/HCPCS: 36415; 80053; 80061; 85027